=== PATIENT | male | born 1995 | race Caucasian/White ===

== ENCOUNTER 2020-02-13 19:30 | Emergency (ER) | payer OTHER ==
[~2020-02-13] VITALS: Ht 172.7 cm; Wt 68.9 kg
[2020-02-13 19:36] VITALS: BP 145/56
--- NOTE | 2020-02-13 19:40 | NUR ---
PT AMBULATED TO BED 7 WITH STEADY GAIT.
--- NOTE | 2020-02-13 19:51 | NUR ---
24 Y/O M PRESENTS TO ED C/O DIZZINESS X 2 WEEKS. PT STATES THAT HE STARTED EXPERIENCING DIZZINESS THAT HAS GOTTEN WORST OVER THE LAST 2 WEEKS, NOW C/O OF HAVING DIFFICULTY SLEEPING DUE TO DIZZINESS. DENIES HEAD INJURY OR TRAUMA, N/V/D. DENIES TAKING ANY OTC MEDICATIONS. AIRWAY INTACT, RR EVEN AND UNLABORED. LUNG SOUNDS CLEAR. AAOX4. VSS. BED LOCKED AND IN LOWEST POSITION, SIDE RAIL UPX1. WILL CONTINUE TO MONITOR. MHX: DENIES NKA
--- NOTE | 2020-02-13 20:00 | NUR ---
DR. RIVERS AT BEDSIDE EVALUATING PT.
--- NOTE | 2020-02-13 20:00 | NUR ---
ERMD AT BEDSIDE.
[2020-02-13] MEDS ORDERED: LORazepam 0.5 MG TAB PO ONE (20:05)
--- NOTE | 2020-02-13 20:19 | NUR ---
URINE COLLECTED AND GIVEN TO LAB.
--- NOTE | 2020-02-13 20:19 | NUR ---
LAB AT BEDSIDE.
[2020-02-13 20:38] LABS: BASOPHILS % (AUTO) 0.8 % (0.0-2.0); EOSINOPHILS # (AUTO) 0.2 K/uL (0-0.4); HEMATOCRIT 48.7 % (36-52); HEMOGLOBIN 16.3 g/dL (12.0-18.0); LYMPHOCYTES # (AUTO) 1.8 K/uL (2.0-11.5); LYMPHOCYTES % (AUTO) 42.1 % (20.5-51.1); MEAN CORPUSCULAR HEMOGLOBIN 29 pg (27-31); MEAN CORPUSCULAR HGB CONC 33 g/dL (33-37); MEAN CORPUSCULAR VOLUME 88.1 fL (80-94); MONOCYTES # (AUTO) 0.4 K/uL (0.8-1.0); MONOCYTES % (AUTO) 9.1 % (1.7-9.3); NEUTROPHILS # (AUTO) 1.8 K/uL (1.8-7.7); PLATELET COUNT (AUTO) 267 K/uL (140-450); RED BLOOD CELL COUNT(AUTO) 5.53 MIL/uL (4.20-6.10); RED CELL DISTRIBUTION WIDTH 13.6 % (11.6-13.7); WHITE BLOOD COUNT (AUTO) 4.2 K/uL (4.8-10.8)
[2020-02-13 20:55] LABS: ANION GAP 13.9 (8-16); CARBON DIOXIDE 26.2 mmol/L (21-32); CREATININE 1.1 mg/dL (0.6-1.3); POTASSIUM 4.1 mmol/L (3.5-5.1)
[2020-02-13 20:57] LABS: BARBITURATE, URINE NEGATIVE ng/ml (NEG <=200); BENZODIAZEPINE, URINE NEGATIVE ng/mL (NEG <=200); CANNABINOID, URINE NEGATIVE ng/mL (NEG <=50); COCAINE, URINE NEGATIVE ng/mL (NEG <=300); OPIATE, URINE NEGATIVE ng/mL (NEG <=2000); PHENCYCLIDINE SCREEN,URINE NEGATIVE ng/mL (NEG <=25)
[2020-02-13 21:17] LABS: FREE T4 (FREE THYROXINE) 1.11 ng/dL (0.76-1.46); THYROID STIMULATING HORMONE 0.99 uIU/mL (0.34-3.74)
--- NOTE | 2020-02-13 21:51 | NUR ---
Patient discharged with v/s stable. Written and verbal after care instructions given and explained. Patient verbalized understanding. Ambulatory with steady gait. All questions addressed prior to discharge. Advised to follow up with PMD.
[2020-02-13 21:54] VITALS: BP 128/60
== END 2020-02-13 21:51 | disposition home or self-care (01) ==
LOC: MED 19:30
DX: R42 Dizziness and giddiness (principal); F41.1 Generalized anxiety disorder; F43.9 Reaction to severe stress, unspecified; G47.00 Insomnia, unspecified
CPT/HCPCS: 36415; 80048; 80305; 84439; 84443; 85025; 93005; 99284

== ENCOUNTER 2021-05-16 10:43 | Emergency (ER) | payer SELFPAY ==
[~2021-05-16] VITALS: Ht 172.7 cm; Wt 79.8 kg
[2021-05-16 11:23] VITALS: BP 141/62
[2021-05-16] MEDS ORDERED: IBUP-2213 PO (13:20)
[2021-05-16 13:25] VITALS: BP 141/62
--- NOTE | 2021-05-16 13:26 | NUR ---
PATIENT ASSESSED AND DISCHARGEDBY DG MCCLURE.
== END 2021-05-16 13:25 | disposition home or self-care (01) ==
LOC: MED 10:43
DX: K20.80 Other esophagitis without bleeding (principal)
CPT/HCPCS: 70360; 99283